=== PATIENT | male | born 2000 | race Caucasian/White ===

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

== ENCOUNTER 2018-05-28 14:37 | Emergency (ER) | payer OTHER ==
[~2018-05-28] VITALS: Ht 172.7 cm; Wt 65.9 kg
[2018-05-28 14:40] VITALS: TEMP 101
[2018-05-28] MEDS ORDERED: AMOXICILLIN 8751 TAB PO (15:58)
[2018-05-28 16:05] VITALS: BP 121/72; PULSE 79
== END 2018-05-28 16:05 | disposition home or self-care (01) ==
LOC: COL.ER 14:37
DX: J02.9 Acute pharyngitis, unspecified (principal); F12.90 Cannabis use, unspecified, uncomplicated